=== PATIENT | male | born 1975 | race Caucasian/White ===

== ENCOUNTER 2020-01-06 11:28 | Emergency (ER) | payer BC, SELFPAY ==
--- NOTE | 2020-01-06 | XR_ITS ---
EXAMINATION: XR ANKLE, RIGHT CLINICAL INFORMATION: Fall with pain COMPARISON: None TECHNIQUE: Three-view right ankle of the right ankle. FINDINGS: There is a large amount soft tissue swelling seen about the ankle. No acute fracture or dislocation is evident and ankle mortise appears intact. There appears to be an ankle effusion. Calcaneal spurs at insertion of the plantar tendon is evident. IMPRESSION: Soft tissue swelling without evidence of acute fracture or dislocation of the right ankle.
[2020-01-06 11:32] VITALS: BP 177/91; PULSE 75; RESP 16; TEMP 36.6; O2SAT 97; BMI 38.0
--- NOTE | 2020-01-06 11:46 | ED.LOWEXIN ---
HPI - Extremity Injury (Lower) General Chief Complaint: Extremity Injury, Lower Stated Complaint: fell off ladder r foot inj Time Seen by Provider: 01/06/20 11:38 Source: patient Mode of arrival: other (crutches) Limitations: no limitations History of Present Illness HPI Narrative: Patient is a 44-year-old male with no significant past medical history states he fell approximately 3 ft off of a ladder while trying to hang something in his garage. Is unsure if he inverted or reverted the ankle but states he was not unable to get up for few minutes, did not hit head, no LOC. Once he got up, had a limping gait, he had crutches at his house so he used those to ambulate. MD complaint: ankle injury Onset (ago): hour(s) Type of Injury: unknown Place: home Severity: moderate Relieving factors: immobilization Exacerbating factors: weight bearing Context: fall Associated symptoms: snap/pop sensation, swelling, numbness (slight), tingling (slight) and able to partially bear weight Other symptoms: none Related Data Allergies Allergy/AdvReac Type Severity Reaction Status Date / Time No Known Allergies Allergy Unverified 12/06/19 15:30 Review of Systems Review of Systems: see HPI Yes all other systems are reviewed and are negative Neurologic: Denies Sensory deficit (Neuro) PMFSH Past Medical History Attestation statement: The following information was validated with the patient. Source: old records reviewed Social History Social History Advance Directives: No Advance Directives Information Provided: No Physical Exam Vital Signs: Vital Signs: Vital Signs Temp Pulse Resp BP Pulse Ox 01/06/20 12:52 142/91 H 01/06/20 11:32 97.8 F 75 16 177/91 H 97 Body Mass Index 38.0 Const: General: cooperative, healthy appearing, comfortable and no acute distress HENMT: Head: Yes normal to inspection Eyes: General: appearance normal, both eyes and all related structures Neck: Neck: Yes normal visual inspection, Yes full ROM and Yes supple Resp: Effort & Inspection: normal respiratory effort and able to speak in complete sentences Skin: General skin exam: no rashes or lesions noted Neuro: Motor exam (neuro): Abnormal motor strength present (5/5 left ankle and foot ; 3/5 right ankle and foot) Sensory Exam: No Sensory deficit (Neuro) Extrem: Ankle/foot/toe images: 1. swollen, no ecchymosis or laceration, TTP Psych: Appearance: grossly normal Course Course Course Narrative: 44-year-old male with no significant past medical history fell approximately 3 ft off of a ladder and injured her right ankle, will get x-ray as [place] ankle rules apply, patient could not walk on the foot after the fall. right ankle xray showed: Soft tissue swelling without evidence of acute fracture or dislocation of the right ankle. Discharge Plan Discharge Clinical Impression: Moderate right ankle sprain Qualifiers: Encounter type: initial encounter Qualified Code(s): S93.401A - Sprain of unspecified ligament of right ankle, initial encounter Patient Disposition: Home, Self-Care Instructions: Ankle Sprain (ED) Referrals: Masha Morelos MD [Physician] - 2 days Stand Alone Forms: Work/School Release Interventions: ED Discharge Assessment Last Done: 01/06/20 13:00 Discharge Date/Time: 01/06/20 13:00
[2020-01-06 12:52] VITALS: BP 142/91
== END 2020-01-06 13:00 | disposition home or self-care (01) ==
PROVIDERS: Emergency Provider Emergency Medicine; PCP Internal Medicine
DX: S93.401A Sprain of unspecified ligament of right ankle, initial encounter (principal); W11.XXXA Fall on and from ladder, initial encounter; Y93.89 Activity, other specified; Y92.015 Private garage of single-family (private) house as the place of occurrence of the external cause; Y99.9 Unspecified external cause status
CPT/HCPCS: 73610; 99283

== ENCOUNTER → 2020-01-14 13:37 | Outpatient (BNVA) | payer BC, SELFPAY | PROVIDERS: Visit Provider Physician Assistant | DX: Z76.89 Persons encountering health services in other specified circumstances (principal) ==

== ENCOUNTER 2020-08-28 05:59 | Outpatient (REF) | payer BC, SELFPAY ==
[2020-08-28 07:38] LABS: MANUAL DIFF FLAG NO
[2020-08-28 07:43] LABS: Basophils Percent Auto 0.4 % (0-2); Eosinophils Absolute Auto 0.2 X10*3/uL (0.0-0.4); Eosinophils Percent Auto 4.8 % (0-4); Hemoglobin 15.8 g/dl (14.0-18.0); Imm Gran Abs Auto 0.01 X10*3/uL (0.00-0.03); Imm Gran Pct Auto 0.2 % (0.0-0.4); Lymphocytes Absolute Auto 1.6 X10*3/uL (1.2-4.9); Lymphocytes Percent Auto 32.5 % (20-40); Mean Corpuscular HGB Conc 33.6 g/dl (31.0-36.0); Mean Corpuscular Volume 89.4 fL (80-98); Mean Platelet Volume 9.4 fL (9.4-12.4); Monocytes Absolute Auto 0.4 X10*3/uL (0.1-1.2); Monocytes Percent Auto 8.1 % (2-11); Neutrophils Absolute Auto 2.7 X10*3/uL (2.0-8.3); Platelet Count 255 X10*3/uL (160-400); Red Blood Count 5.26 X10*6/uL (4.60-5.80); Red Cell Distribution Width 12.3 % (11.0-16.0)
[2020-08-28 08:01] LABS: Alanine Aminotransferase 32 U/L (0-40); Albumin Level 4.3 g/dL (3.5-5.0); Alkaline Phosphatase 98 U/L (39-117); Anion Gap 12 (12-20); Aspartate Amino Transferase 28 U/L (5-37); Bilirubin Total 0.6 mg/dL (0.0-1.0); Blood Urea Nitrogen 17 mg/dL (9-16); Calcium 9.4 mg/dL (8.4-10.2); Carbon Dioxide 26 mmol/L (22-29); Chloride 106 mmol/L (96-108); Cholesterol 203 mg/dL; Estimated Glomerular Filt Rate > 60; Glucose Random 95 mg/dL (60-115); HDL Cholesterol 45 mg/dL; LDL Cholesterol Calculated 127 mg/dl; Potassium 4.4 mmol/L (3.3-5.1); Sodium 140 mmol/L (135-145); Total Protein 7.3 g/dL (6.5-8.0); Triglycerides 158 mg/dL
[2020-08-28 08:35] LABS: Vitamin D 25-OH Total 23.2 ng/mL (>30)
[2020-08-28 09:14] LABS: Prostate Specific Antigen 0.45 ng/mL (<0.05-4.0)
== END 2020-08-28 06:00 | disposition home or self-care (01) ==
LOC: HO.LAB 05:59
PROVIDERS: PCP Internal Medicine; Visit Provider Internal Medicine
DX: Z00.00 Encounter for general adult medical examination without abnormal findings (principal); Z12.5 Encounter for screening for malignant neoplasm of prostate
CPT/HCPCS: 36415; 80053; 80061; 82306; 84153; 85025